=== PATIENT | female | born 1970 | race Caucasian/White ===

== ENCOUNTER → 2019-02-18 | Day surgery (SDC) | payer OTHER ==
[~2019-02-18] MED LIST: BUPR100T8 PO; DESO1TAB6 PO; DIGO125T PO; FURO20TA3 PO; GLIM4TAB2 PO; IV RINGERS,LACTATED 1000ML 1,000 ML IV SCH; LIDOCAINE 1% PF 2 ML VIAL. ID PRN; LOSA50TA15 PO; METO200T46 PO; MIDAZOLAM HCL/PF 2 MG/2 ML VIAL. IV PRN; PROPOFOL 100 ML IV ONE; SPIR25TA5 PO; ZOLP5TAB5 PO; fentaNYL PF VIAL 100 MCG/2 ML VIAL IV PRN
[2019-02-18 14:22] VITALS: BP 115/63
--- NOTE | 2019-02-19 11:07 | PATHOLOGY ---
[facility] Accession Number: [id number] . 01 Material submitted: . PART A: duodenum - DUODENUM PART B: colon - RANDOM COLON PART C: colon - ASCENDING COLON POLYP. Modifiers: ascending . 01 Clinical history: . Pre-OP DX: Abdominal pain, diarrhea Post-OP DX: Rule out celiac . 02 Diagnosis: A. Duodenum "duodenum, biopsy": - No obvious diagnostic changes. - There is no evidence of acute cryptitis, granulomas, adenomatous change, sprue like changes or malignancy. . B. Colonic mucosa "random colon biopsies": - No obvious diagnostic changes. - There is no evidence of acute cryptitis, granulomas, adenomatous change, changes of microscopic colitis, or malignancy. . C. Colonic mucosa "ascending colon polyp biopsy": - Fragments of tubular adenoma. - There is no evidence of high-grade dysplasia or malignancy. (SHA:[facility]; 02/19/2019) QT/02/19/2019 . 02 Electronically signed: . Duy Murillo MD, Pathologist NPI- [id number] . 01 Gross description: . A. Received in formalin labeled "[place], Nhi, duodenum," are 5 segments of thomason soft tissue measuring 1.4 x 1.1 x 0.4 cm in aggregate dimensions and ranging from 0.3 to 0.6 cm in maximum dimension. The specimen is submitted entirely in cassette A1. . B. Received in formalin labeled "Nhi [place], random colon," are multiple segments of thomason soft tissue measuring 2.0 x 0.6 x 0.1 cm in aggregate dimensions. The specimen is filtered and entirely submitted in cassette B1. . C. Received in formalin labeled "Nhi [place], ascending colon polyp," is a 0.8 x 0.4 x 0.5 cm polypoid piece of thomason soft tissue. The margin is inked and the tissue is sectioned perpendicular to the margin and submitted entirely in cassette C1. Additionally received in the same container is a 0.8 x 0.4 x 0.4 cm polypoid piece of thomason soft tissue. The presumed margin is inked and the specimen is sectioned perpendicular to the margin and entirely submitted in cassette C2. ([facility]; 02/18/2019) TOB/TOB . 02 Pathologist provided ICD-10: D12.2, R10.9, R19.7 . 02 CPT . 911663, 349095, 096157 Specimen Comment: A courtesy copy of this report has been sent to Specimen Comment: [phone], . Specimen Comment: Report sent to / DR NUÑEZ Performed at: 01 [facility] [address] [facility] [address], [place] [id number] MD Russell Leblanc MD Phone: [phone] Performed at: 02 [facility] [address] [place], [place] [id number] MD Mt Curiel MD Phone: [phone]
== END ==
LOC: ENDOS 11:46
PROVIDERS: ATTEND Internal Medicine Gastroenterology
DX: D12.2 Benign neoplasm of ascending colon (principal); K64.0 First degree hemorrhoids; K21.9 Gastro-esophageal reflux disease without esophagitis; K31.89 Other diseases of stomach and duodenum; F41.9 Anxiety disorder, unspecified; F32.9 Major depressive disorder, single episode, unspecified; E11.9 Type 2 diabetes mellitus without complications; I50.9 Heart failure, unspecified; F15.90 Other stimulant use, unspecified, uncomplicated; Z72.89 Other problems related to lifestyle; Z95.810 Presence of automatic (implantable) cardiac defibrillator; Z98.890 Other specified postprocedural states; Z79.84 Long term (current) use of oral hypoglycemic drugs
CPT/HCPCS: 43239; 45385; 88305; J2704; 45380